=== PATIENT | male | born 1970 | race Caucasian/White ===

== ENCOUNTER → 2016-10-25 | Outpatient (REF) | payer OTHER ==
[~2016-10-25] MED LIST: CLAR10CA3 PO; FOLI1TAB2 PO; MILKSUS PO; MOBI7.5T10 PO; MOTR200T44 PO; MULT1TAB8 PO; MYLASUS6 PO; NEUR300C PO; TRAZ50TA4 PO; VICO10TA11 PO; VITA100T60 PO; WELL100T PO; ZEST1TAB5 PO
[2016-10-25 13:41] LABS: BASO % 0.4 % (0.0-1.0); EOS # 0.2 K/mm3 (0.0-0.50); EOS % 2.5 % (0.0-3.0); LARGE UNSTAINED CELL # 0.1 K/mm3 (0.0-0.4); LARGE UNSTAINED CELL % 1.2 % (0.0-4.0); LYMPH # 2.2 K/mm3 (1.5-4.5); LYMPH % 20.6 % (24.0-44.0); MEAN CORPUSCULAR HEMOGLOBIN 30.8 pg (27.0-33.0); MEAN CORPUSCULAR HGB CONC 34.6 g/dl (32.0-36.5); MONO # 0.9 K/mm3 (0.0-0.8); NEUTROPHILS # 6.7 K/mm3 (1.8-7.7); NEUTROPHILS % 66.3 % (36.0-66.0); PLATELET COUNT, AUTOMATED 187 k/mm3 (150-450); RED CELL DISTRIBUTION WIDTH 12.9 % (11.5-14.5); WHITE BLOOD COUNT 10.1 K/mm3 (4.0-10.0)
[2016-10-25 13:53] LABS: ALBUMIN 3.8 GM/DL (3.2-5.2); ALBUMIN/GLOBULIN RATIO 1.23 (1.00-1.93); ALKALINE PHOSPHATASE 81 U/L (45-117); ALT/SGPT 67 U/L (12-78); ANION GAP 8 MEQ/L (8-16); AST/SGOT 33 U/L (15-37); BILIRUBIN,TOTAL 0.8 MG/DL (0.2-1.0); BLOOD UREA NITROGEN 20 MG/DL (7-18); CALCIUM LEVEL 8.5 MG/DL (8.5-10.1); CARBON DIOXIDE LEVEL 27 MEQ/L (21-32); CHLORIDE LEVEL 105 MEQ/L (98-107); CREATININE FOR GFR 0.85 MG/DL (0.70-1.30); GLOMERULAR FILTRATION RATE > 60.0 (>60); GLUCOSE, FASTING 81 MG/DL (70-105); POTASSIUM SERUM 4.1 MEQ/L (3.5-5.1); SODIUM LEVEL 140 MEQ/L (136-145); TOTAL PROTEIN 6.9 GM/DL (6.4-8.2)
[2016-10-29 08:07] LABS: ALT 62 IU/L (0-55); FIBROSIS STAGE F1-F2 (.); GGT 38 IU/L (0-65); HAPTOGLOBIN 53 mg/dL (34-200); NECROINFLAMM GRADE A1-A2 (.); TOTAL BILIRUBIN 0.6 mg/dL (0.0-1.2)
[2016-10-29 14:15] LABS: HEPATITIS C QUANTITATION 1772860 IU/mL (.)
== END ==
LOC: M SFHCPLAZ 11:12
PROVIDERS: ATTEND Internal Medicine Infectious Disease
DX: B18.2 Chronic viral hepatitis C (principal)

== ENCOUNTER 2017-06-16 08:28 | Day surgery (SDC) | payer OTHER, MEDICAID ==
[2017-06-16] MEDS: LR 1,000 ML IV ×2 (09:15→12:15)
[2017-06-16] MEDS ORDERED: MIDAZOLAM INJ 2 MG/2 ML VIAL (J2250) As Ordered (09:48)
[2017-06-16] MEDS ORDERED: fentaNYL 100 MCG/2 ML INJECTION (J3010) As Ordered ×2 (09:48→12:30)
[2017-06-16] MEDS: fentaNYL 100 MCG/2 ML INJECTION (J3010) IV ×4 (10:35→10:50)
[2017-06-16] MEDS: OXYMETAZOLINE NASAL SPRAY (AFRIN) As Ordered (10:44)
[2017-06-16] MEDS: EPINEPHrine INJ 1 MG/ML 1ML AMP As Ordered (10:44)
[2017-06-16] MEDS ORDERED: METHYLENE BLUE 0.5% (5MG/ML) 10 ML AMP (PROVAYBLUE)(Q9968 PER 1MG) As Ordered (10:47)
[2017-06-16] MEDS ORDERED: ROCURONIUM BROMIDE 50 MG/5 ML VIAL As Ordered (11:00)
[2017-06-16] MEDS ORDERED: LIDOCAINE 2% INJ 100 MG/5 ML SDV (FOR ANES.) As Ordered (11:00)
[2017-06-16] MEDS ORDERED: PROPOFOL 200 MG/20 ML VIAL As Ordered (11:00)
[2017-06-16] MEDS ORDERED: GLYCOPYRROLATE INJ 0.2 MG/ML 2 ML VIAL As Ordered (11:00)
[2017-06-16] MEDS ORDERED: SUCCINYLCHOLINE 100 MG/5 ML SYRINGE (J0330) As Ordered (11:00)
[2017-06-16] MEDS ORDERED: dexameTHASONE 4 MG/ML 1ML VIAL (J1100) As Ordered ×2 (11:00)
[2017-06-16] MEDS ORDERED: ONDANSETRON 4MG/2ML VIAL (J2405) As Ordered (11:00)
[2017-06-16] MEDS ORDERED: LIDOCAINE W/EPINEPHRINE 1% 20ML VIAL As Ordered ×2 (11:05→11:08)
[2017-06-16] MEDS ORDERED: ONDANSETRON 4 MG TAB (S0181) PO (13:15)
[2017-06-16] MEDS ORDERED: ONDANSETRON 4MG/2ML VIAL (J2405) IV (13:15)
[2017-06-16] MEDS: PERCOCET 5MG/325MG TAB PO (13:44)
[2017-06-16] MEDS ORDERED: IBUPROFEN 800 MG TAB As Ordered (14:39)
[2017-06-16] MEDS: IBUPROFEN 800 MG TAB PO (14:45)
[2017-06-17] MEDS ORDERED: UNRESOLVED CLARIFICATION ENTRY XX (00:01)
== END 2017-06-16 15:25 | disposition home or self-care (01) ==
LOC: M SDC 08:28
DX: J32.9 Chronic sinusitis, unspecified (principal); J34.2 Deviated nasal septum; F32.9 Major depressive disorder, single episode, unspecified; M17.0 Bilateral primary osteoarthritis of knee; M19.149 Post-traumatic osteoarthritis, unspecified hand; M47.819 Spondylosis without myelopathy or radiculopathy, site unspecified; Z86.19 Personal history of other infectious and parasitic diseases; R06.02 Shortness of breath; F17.210 Nicotine dependence, cigarettes, uncomplicated; Z79.899 Other long term (current) drug therapy
CPT/HCPCS: 30520

== ENCOUNTER → 2019-11-09 | Outpatient (CLI) | payer OTHER ==
[~2019-11-09] MED LIST changes: +FOLI1TAB11 PO; -FOLI1TAB2 PO; +GABA-1171 PO; +MILK120011 PO; -MILKSUS PO; +MOBI4TAB PO; -MOBI7.5T10 PO; +TRAZ-252 PO; -TRAZ50TA4 PO
--- NOTE | 2019-11-09 18:13 | REP ---
Clinical: Chronic cough . Comparison: None . Technique: PA and lateral. Findings: The mediastinum and cardiac silhouette are normal. The lung [place] are clear and without acute consolidation, effusion, or pneumothorax. The skeletal structures are intact and normal. Impression: 1. No acute cardiopulmonary process. If the patient remains symptomatic consider chest CT for further investigation. Electronically Signed by Lemuel Garza MD 11/09/2019 06:05 P
== END ==
LOC: M CLY 10:11
PROVIDERS: ATTEND Physician Assistant
DX: R05 Cough (principal)

== ENCOUNTER → 2019-12-02 | Outpatient (CLI) | payer OTHER ==
--- NOTE | 2019-12-02 08:54 | PFTRPT ---
Visit Date: 12/02/2019 Referring Doctor: MALENA Diaz Marcus, M Height: 74.00 Inches Weight: 215.00 Lbs BSA: 2.24 Diagnosis: R06.00 Spirometry: Pre and post bronchodilator study of excellent technical quality. Forced vital capacity normal. FEV1 out of proportion. Obstructive index is, therefore, reduced. Flow Volume Loop: Expiratory limb of the flow volume loop suggests some degree of flow rate limitation. Only borderline bronchodilator response is identified. Lung Volumes: Total lung capacity elevated. Residual volume suggests air trapping. Diffusing Capacity: Normal. Hemoglobin: Acceptable at 16. Airway Mechanics: Airways resistance and conductance are normal. IMPRESSION: At least mild obstructive ventilatory impairment with borderline bronchodilator response. Please correlate clinically. MTDD
== END ==
LOC: M CARPUL 07:47
PROVIDERS: ATTEND Physician Assistant
DX: R06.00 Dyspnea, unspecified (principal)

== ENCOUNTER → 2019-12-08 | Outpatient (CLI) | payer OTHER ==
[2019-12-08 14:13] LABS: APPEARANCE, URINE CLEAR (CLEAR); BACTERIA, URINE AUTO NEGATIVE (NEGATIVE); BILIRUBIN, URINE AUTO NEGATIVE (NEGATIVE); BLOOD, URINE BLOOD NEGATIVE (NEGATIVE); COLOR, URINE COLORLESS (YELLOW); GLUCOSE, URINE (UA) AUTO NEGATIVE (NEGATIVE); KETONE, URINE AUTO NEGATIVE (NEGATIVE); LEUKOCYTE ESTERASE, URINE AUTO NEGATIVE (NEGATIVE); NITRITE, URINE AUTO NEGATIVE (NEGATIVE); PROTEIN, URINE AUTO NEGATIVE (NEGATIVE); RBC, URINE AUTO 1 /HPF (0-3); SPECIFIC GRAVITY URINE AUTO 1.001 (1.002-1.035); SQUAMOUS EPITHELIAL CELL UR AU 0 /HPF (0-6); UROBILINOGEN, URINE AUTO 0.2 mg/dL (0.0-2.0); WBC, URINE AUTO 0 /HPF (0-3)
[2019-12-08 14:21] LABS: BASO % 0.3 % (0.0-1.0); EOS # 0.1 10^3/uL (0.0-0.5); EOS % 1.4 % (0.0-3.0); HEMATOCRIT 47.3 % (42.0-52.0); HEMOGLOBIN 16.4 g/dl (13.5-17.5); LYMPH % 22.7 % (24.0-44.0); MEAN CORPUSCULAR HEMOGLOBIN 29.7 pg (27.0-33.0); MEAN CORPUSCULAR HGB CONC 34.7 g/dl (32.0-36.5); MEAN CORPUSCULAR VOLUME 85.5 fl (80.0-96.0); MONO # 0.6 10^3/uL (0.0-0.8); MONO % 7.3 % (0.0-5.0); NEUTROPHILS # 5.9 10^3/uL (1.5-8.5); PLATELET COUNT, AUTOMATED 204 10^3/uL (150-450); RED BLOOD COUNT 5.53 10^6/uL (4.30-6.10); WHITE BLOOD COUNT 8.7 10^3/uL (4.0-10.0)
[2019-12-08 15:07] LABS: ALBUMIN 4.1 GM/DL (3.2-5.2); ALT/SGPT 46 U/L (12-78); BILIRUBIN,DIRECT 0.2 MG/DL (0.0-0.2); BILIRUBIN,TOTAL 0.6 MG/DL (0.2-1.0); BLOOD UREA NITROGEN 10 MG/DL (7-18); CALCIUM LEVEL 8.9 MG/DL (8.5-10.1); CARBON DIOXIDE LEVEL 23 MEQ/L (21-32); CHLORIDE LEVEL 109 MEQ/L (98-107); CHOLESTEROL LEVEL 148 MG/DL (<200); CREATININE FOR GFR 0.79 MG/DL (0.70-1.30); GLOMERULAR FILTRATION RATE > 60.0 (>60); GLUCOSE, FASTING 80 MG/DL (70-100); HDL CHOLESTEROL 37 MG/DL (>40); LDL CHOLESTEROL 97 MG/DL (<100); NON-HDL-C 111 MG/DL; POTASSIUM SERUM 3.9 MEQ/L (3.5-5.1); SODIUM LEVEL 138 MEQ/L (136-145); TOTAL PROTEIN 7.8 GM/DL (6.4-8.2); TRIGLYCERIDES LEVEL 68 MG/DL (<150)
[2019-12-14 11:12] LABS: HEPATITIS C QUANTITATION HCV Not Detected IU/mL (.)
== END ==
LOC: M LAB 13:21
PROVIDERS: ATTEND Physician Assistant
DX: B18.2 Chronic viral hepatitis C (principal); I10 Essential (primary) hypertension

== ENCOUNTER → 2020-02-10 | Outpatient (CLI) | payer OTHER ==
[~2020-02-10] MED LIST changes: +METHACHOLINE KIT (J7674) INH ONE
--- NOTE | 2020-02-17 11:38 | PFTRPT ---
Height: 74.00 Inches Weight: 215.00 Lbs BSA: 2.24 DATE: 02/10/2020 ORDERED BY: Lemuel Diaz M.D. QUALITY: Study of excellent technical quality. PROCEDURE: Under protocol, methacholine was administered. At a dose of 0.025 mg or 0.125 CDUs, a 23% decline of the FEV1 was noted. Flow rates did return to baseline post-bronchodilator administration. IMPRESSION: Positive methacholine challenge study. MTDD
--- NOTE | 2020-02-17 11:38 | PFTRPT ---
Height: 74.00 Inches Weight: 215.00 Lbs BSA: 2.24 DATE OF STUDY: 02/10/2020 ORDERED BY: Hemanth Diaz QUALITY: Study of excellent technical quality. PROCEDURE: Under protocol, methacholine was administered. At a dose of 0.025 mg or 0.125 CDUs, a 23% decline in the FEV1 was noted. No PC calculated. Flow rates did return to baseline post-bronchodilator administration. IMPRESSION: Positive methacholine challenge study. MTDD
== END ==
LOC: M CARPUL 14:04
PROVIDERS: ATTEND Physician Assistant
DX: R06.00 Dyspnea, unspecified (principal)
CPT/HCPCS: 94070; 95070; J7674

== ENCOUNTER 2020-07-04 12:47 | Emergency (ER) | payer OTHER ==
[~2020-07-04] VITALS: Ht 188 cm; Wt 106.8 kg
[~2020-07-04 12:47] MED LIST changes: -METHACHOLINE KIT (J7674) INH ONE
[2020-07-04] MEDS ORDERED: CIAL5TAB PO (13:16)
[2020-07-04] MEDS ORDERED: LISI40TA4 (13:16)
[2020-07-04] MEDS ORDERED: BRIL1TAB (13:16)
[2020-07-04] MEDS ORDERED: ATOR80TA59 (13:16)
[2020-07-04 13:32] LABS: BASO % 0.4 % (0.0-1.0); EOS # 0.2 10^3/uL (0.0-0.5); EOS % 2.8 % (0.0-3.0); HEMATOCRIT 44.7 % (42.0-52.0); HEMOGLOBIN 15.3 g/dl (13.5-17.5); LYMPH # 2.3 10^3/uL (1.5-5.0); MEAN CORPUSCULAR HGB CONC 34.2 g/dl (32.0-36.5); MEAN CORPUSCULAR VOLUME 84.7 fl (80.0-96.0); MONO # 0.9 10^3/uL (0.0-0.8); MONO % 11.3 % (0.0-5.0); NEUTROPHILS # 4.3 10^3/uL (1.5-8.5); NEUTROPHILS % 55.2 % (36.0-66.0); PLATELET COUNT, AUTOMATED 181 10^3/uL (150-450); RED BLOOD COUNT 5.28 10^6/uL (4.30-6.10); WHITE BLOOD COUNT 7.8 10^3/uL (4.0-10.0)
--- NOTE | 2020-07-04 13:53 | REP ---
INDICATION: CHEST PAIN. COMPARISON: Comparison portable chest x-ray November 09, 2019. TECHNIQUE: Portable upright AP chest radiograph. Two views. FINDINGS: The lungs are well inflated and free of infiltrate. Pleural angles are sharp. Heart size is normal. Pulmonary vasculature is not increased. Monitoring electrodes are visible. IMPRESSION: No active disease. <Electronically signed by Darius Nance > 07/04/20 [id number]
[2020-07-04 14:05] LABS: BLOOD UREA NITROGEN 14 MG/DL (7-18); CARBON DIOXIDE LEVEL 24 MEQ/L (21-32); CHLORIDE LEVEL 105 MEQ/L (98-107); CK-MB VALUE MASS 1.8 NG/ML (<3.6); CPK CREATINE PHOSPHOKINASE 164 U/L (39-308); CREATININE FOR GFR 0.96 MG/DL (0.70-1.30); GLOMERULAR FILTRATION RATE > 60.0 (>60); GLUCOSE, FASTING 101 MG/DL (70-100); NT-PRO BNP 69 PG/ML (<125); POTASSIUM SERUM 3.9 MEQ/L (3.5-5.1); SODIUM LEVEL 138 MEQ/L (136-145); TROPONIN I < 0.02 NG/ML (< 0.10)
[2020-07-04 20:00] VITALS: BP 123/83
--- NOTE | 2020-07-05 14:40 | ECGEPIP ---
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
--- NOTE | 2020-07-05 14:44 | ECGEPIP ---
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
== END 2020-07-04 20:10 | disposition home or self-care (01) ==
LOC: M ED 12:47
DX: R07.9 Chest pain, unspecified (principal); I11.9 Hypertensive heart disease without heart failure; K21.9 Gastro-esophageal reflux disease without esophagitis; E78.5 Hyperlipidemia, unspecified; Z87.891 Personal history of nicotine dependence; Z95.818 Presence of other cardiac implants and grafts

== ENCOUNTER 2020-09-18 13:17 | Emergency (ER) | payer OTHER ==
[~2020-09-18] VITALS: Ht 188 cm; Wt 105.2 kg
[~2020-09-18 13:17] MED LIST changes: +ATOR80TA59; +BRIL1TAB; +CIAL5TAB PO; +LISI40TA4
[2020-09-18 13:18] VITALS: BP 143/89
== END 2020-09-18 16:05 | disposition left against medical advice (07) ==
LOC: M ED 13:17
DX: Z53.21 Procedure and treatment not carried out due to patient leaving prior to being seen by health care provider (principal)

== ENCOUNTER → 2020-10-18 | Outpatient (CLI) | payer OTHER ==
[~2020-10-18] MED LIST changes: +GASTROGRAFIN SOLUTION 30ML (Q9963) As Ordered ONE; +ISOVUE-370 76% 100ML VIAL As Ordered ONE
--- NOTE | 2020-10-20 02:25 | REP ---
INDICATION: RLQ PAIN. COMPARISON: None available TECHNIQUE: Axial contrast-enhanced images from the lung bases to the pubic symphysis using oral and 100 cc Isovue 370 intravenous contrast material. Coronal and sagittal reformations obtained. This CT examination was performed using the following dose reduction techniques: Automated exposure control, adjustment of mA and/or kv according to the patient's size, and the use of iterative reconstruction technique. FINDINGS: Lung bases are clear. Visualized heart and pericardium normal. A very small hiatal hernia at the gastroesophageal junction is suspected. Liver, spleen, pancreas, bilateral adrenal glands and kidneys are normal. Cholelithiasis noted without acute cholecystitis. The enteric system including stomach, small, and large bowel appears relatively normal. No evidence for obstruction or acute inflammatory process. Normal terminal ileum and appendix are identified in the right lower quadrant. Few scattered colonic diverticula noted without acute diverticulitis. Pelvis demonstrates normal bladder and age-appropriate prostate/seminal vesicles. Small fat containing left inguinal hernia noted. No ascites. No free air. No intraperitoneal or retroperitoneal adenopathy. Abdominal aorta and vasculature appear normal. Musculoskeletal structures are intact and without acute osseous abnormality. IMPRESSION: No acute abdominopelvic pathology appreciated. Cholelithiasis. Small hiatal hernia. Scattered colonic diverticula. Small fat containing left inguinal hernia. <Electronically signed by Lemuel Garza > 10/20/20 [id number]
== END ==
LOC: M RAD 13:46
PROVIDERS: ATTEND Physician Assistant
DX: R10.9 Unspecified abdominal pain (principal)
CPT/HCPCS: 74177; Q9963; Q9967

== ENCOUNTER → 2020-11-24 | Outpatient (CLI) | payer OTHER ==
[~2020-11-24] MED LIST changes: -GASTROGRAFIN SOLUTION 30ML (Q9963) As Ordered ONE; -ISOVUE-370 76% 100ML VIAL As Ordered ONE
== END ==
LOC: M LABSMTC 12:27
PROVIDERS: ATTEND Anesthesiology
DX: Z01.812 Encounter for preprocedural laboratory examination (principal); Z20.822 Contact with and (suspected) exposure to COVID-19

== ENCOUNTER 2020-11-29 09:01 | Day surgery (SDC) | payer OTHER ==
[~2020-11-29] VITALS: Ht 188 cm; Wt 99.8 kg
[2020-11-29] MEDS ORDERED: BIOT1CAP2 PO (09:29)
[2020-11-29] MEDS ORDERED: LOSA100T50 PO (09:29)
[2020-11-29] MEDS ORDERED: ASPI81CH33 PO (09:29)
[2020-11-29] MEDS ORDERED: NS 1,000 ML IV ONE (09:40)
[2020-11-29] MEDS ORDERED: LIDOCAINE 2% 100MG/5ML SDV (FOR ANES.) As Ordered ONE (10:21)
[2020-11-29] MEDS ORDERED: propofoL 200 MG/20 ML VIAL As Ordered ONE ×2 (10:21→10:34)
[2020-11-29] MEDS ORDERED: fentaNYL 100 MCG/2 ML INJECTION (J3010) As Ordered ONE (10:22)
--- NOTE | 2020-11-29 10:50 | ROOR ---
Patient Name: Eh Estrada Procedure Date: 11/29/2020 10:31 AM Date of : 1970 Age: 50 Room: [facility] Gender: Male Note Status: Finalized Procedure: Upper Endoscopy + Biopsies Indications: Abdominal pain in the right upper quadrant, Heartburn, Exclusion of Mann's esophagus Providers: Endy Castaneda MD Referring MD: STEPH Vanegas pa-c Requesting Provider: Medicines: Monitored Anesthesia Care Complications: No immediate complications. Procedure: Pre-Anesthesia Assessment: - The heart rate, respiratory rate, oxygen saturations, blood pressure, adequacy of pulmonary ventilation, and response to care were monitored throughout the procedure. The Endoscope was introduced through the mouth, and advanced to the second part of duodenum. The upper GI endoscopy was accomplished without difficulty. The patient tolerated the procedure well. Findings: The Z-line was irregular and was found 40 cm from the incisors. Non-severe esophagitis with no bleeding was found 40 cm from the incisors. Biopsies were taken with a cold forceps for histology. Localized mild inflammation characterized by adherent blood, congestion (edema), erosions and friability was found in the gastric antrum. Biopsies were taken with a cold forceps for Helicobacter pylori testing. The exam of the duodenum was otherwise normal. Impression: - Z-line irregular, 40 cm from the incisors. - Non-severe reflux esophagitis. Rule out Mann's esophagus. Biopsied. - Mucosal changes suspicious for gastritis. Biopsied. - The examination was otherwise normal. Recommendation: - Patient has a contact number available for emergencies. The signs and symptoms of potential delayed complications were discussed with the patient. Return to normal activities tomorrow. Written discharge instructions were provided to the patient. - High fiber diet. - Discharge patient to home. - Continue present medications. - Use Prilosec (omeprazole) 40 mg PO daily. - Follow an antireflux regimen. - Await pathology results. - Telephone GI clinic for pathology results in 1 week. - Repeat upper endoscopy for surveillance based on pathology results. - Telephone GI clinic for pathology results in 1 week. - The findings and recommendations were discussed with the patient's family. Procedure Code(s): --- Professional --- 53076, Esophagogastroduodenoscopy, flexible, transoral; with biopsy, single or multiple Diagnosis Code(s): --- Professional --- K22.8, Other specified diseases of esophagus K21.0, Gastro-esophageal reflux disease with esophagitis K31.89, Other diseases of stomach and duodenum R10.11, Right upper quadrant pain R12, Heartburn CPT copyright 2019 [employer]. All rights reserved. The codes documented in this report are preliminary and upon professional application designer review may be revised to meet current compliance requirements. Endy Castaneda MD Endy Castaneda MD 11/29/2020 10:49:35 AM Electronically signed by Endy Castaneda MD Number of Addenda: 0 Note Initiated On: 11/29/2020 10:31 AM Estimated Blood Loss: Estimated blood loss: none.
--- NOTE | 2020-11-29 11:06 | ROOR ---
Patient Name: Eh Estrada Procedure Date: 11/29/2020 10:32 AM Date of : 1970 Age: 50 Room: [facility] Gender: Male Note Status: Finalized Procedure: Total Colonoscopy to Cecum + Cold Snare Polypectomy Indications: Screening for colorectal malignant neoplasm Providers: Endy Castaneda MD Referring MD: STEPH Vanegas pa-c Requesting Provider: Medicines: Monitored Anesthesia Care Complications: No immediate complications. Procedure: Pre-Anesthesia Assessment: - The heart rate, respiratory rate, oxygen saturations, blood pressure, adequacy of pulmonary ventilation, and response to care were monitored throughout the procedure. The Colonoscope was introduced through the anus and advanced to the cecum, identified by appendiceal orifice and ileocecal valve. The colonoscopy was performed without difficulty. The quality of the bowel preparation was good. Findings: The perianal and digital rectal examinations were normal. Internal hemorrhoids were found during retroflexion. The hemorrhoids were small and Grade I (internal hemorrhoids that do not prolapse). A small polyp was found at 20 cm proximal to the anus. The polyp was sessile. The polyp was removed with a cold snare. Resection and retrieval were complete. A small polyp was found in the hepatic flexure. The polyp was sessile. The polyp was removed with a cold snare. Resection and retrieval were complete. The exam was otherwise without abnormality on direct and retroflexion views. Impression: - Internal hemorrhoids. - One small polyp at 20 cm proximal to the anus, removed with a cold snare. Resected and retrieved. - One small polyp at the hepatic flexure, removed with a cold snare. Resected and retrieved. - The examination was otherwise normal on direct and retroflexion views. - The exam was otherwise normal to the cecum. Recommendation: - Patient has a contact number available for emergencies. The signs and symptoms of potential delayed complications were discussed with the patient. Return to normal activities tomorrow. Written discharge instructions were provided to the patient. - High fiber diet. - Discharge patient to home. - Continue present medications. - Await pathology results. - Telephone GI clinic for pathology results in 1 week. - Repeat colonoscopy in 5 years for surveillance based on pathology results. - Return to referring physician. - The findings and recommendations were discussed with the patient's family. Procedure Code(s): --- Professional --- 24866, Colonoscopy, flexible; with removal of tumor(s), polyp(s), or other lesion(s) by snare technique Diagnosis Code(s): --- Professional --- Z12.11, Encounter for screening for malignant neoplasm of colon K64.0, First degree hemorrhoids K63.5, Polyp of colon CPT copyright 2019 [employer]. All rights reserved. The codes documented in this report are preliminary and upon photoengraving finisher review may be revised to meet current compliance requirements. Endy Castaneda MD Endy Castaneda MD 11/29/2020 11:06:02 AM Electronically signed by Endy Castaneda MD Number of Addenda: 0 Note Initiated On: 11/29/2020 10:32 AM Estimated Blood Loss: Estimated blood loss: none.
[2020-11-29 11:30] VITALS: BP 139/81
== END 2020-11-29 11:33 | disposition home or self-care (01) ==
LOC: M OPP 09:01
PROVIDERS: ATTEND Internal Medicine Gastroenterology
DX: Z12.11 Encounter for screening for malignant neoplasm of colon (principal); D12.6 Benign neoplasm of colon, unspecified; K64.0 First degree hemorrhoids; K22.8 Other specified diseases of esophagus; K21.00 Gastro-esophageal reflux disease with esophagitis, without bleeding; K31.89 Other diseases of stomach and duodenum; R10.11 Right upper quadrant pain; R12 Heartburn; Z79.82 Long term (current) use of aspirin; Z79.899 Other long term (current) drug therapy; Z87.891 Personal history of nicotine dependence
CPT/HCPCS: 43239; 45385; 88305; J3010

== ENCOUNTER → 2021-03-02 | Outpatient (CLI) | payer OTHER ==
[~2021-03-02] MED LIST changes: +ASPI81CH33 PO; +BIOT1CAP2 PO; +LOSA100T50 PO
[2021-03-02 14:26] LABS: APPEARANCE, URINE CLEAR (CLEAR); BACTERIA, URINE AUTO NEGATIVE (NEGATIVE); BILIRUBIN, URINE AUTO NEGATIVE (NEGATIVE); BLOOD, URINE BLOOD NEGATIVE (NEGATIVE); COLOR, URINE STRAW (YELLOW); GLUCOSE, URINE (UA) AUTO NEGATIVE (NEGATIVE); KETONE, URINE AUTO NEGATIVE (NEGATIVE); LEUKOCYTE ESTERASE, URINE AUTO NEGATIVE (NEGATIVE); MUCUS, URINE SMALL (NEGATIVE); NITRITE, URINE AUTO NEGATIVE (NEGATIVE); PROTEIN, URINE AUTO NEGATIVE (NEGATIVE); RBC, URINE AUTO 0 /HPF (0-3); SPECIFIC GRAVITY URINE AUTO 1.009 (1.002-1.035); SQUAMOUS EPITHELIAL CELL UR AU 0 /HPF (0-6); UROBILINOGEN, URINE AUTO 0.2 mg/dL (0.0-2.0); WBC, URINE AUTO 0 /HPF (0-3)
[2021-03-02 14:28] LABS: BASO % 0.4 % (0.0-1.0); EOS # 0.2 10^3/uL (0.0-0.5); EOS % 2.1 % (0.0-3.0); HEMATOCRIT 44.3 % (42.0-52.0); HEMOGLOBIN 15.2 g/dl (13.5-17.5); LYMPH # 1.9 10^3/uL (1.5-5.0); LYMPH % 22.2 % (24.0-44.0); MEAN CORPUSCULAR HEMOGLOBIN 29.6 pg (27.0-33.0); MEAN CORPUSCULAR HGB CONC 34.3 g/dl (32.0-36.5); MEAN CORPUSCULAR VOLUME 86.4 fl (80.0-96.0); MONO # 0.9 10^3/uL (0.0-0.8); MONO % 10.8 % (2.0-8.0); NEUTROPHILS # 5.4 10^3/uL (1.5-8.5); PLATELET COUNT, AUTOMATED 155 10^3/uL (150-450); RED BLOOD COUNT 5.13 10^6/uL (4.30-6.10); WHITE BLOOD COUNT 8.5 10^3/uL (4.0-10.0)
[2021-03-02 15:08] LABS: ALBUMIN 3.8 GM/DL (3.2-5.2); ALT/SGPT 49 U/L (12-78); BILIRUBIN,TOTAL 0.8 MG/DL (0.2-1.0); BLOOD UREA NITROGEN 15 MG/DL (7-18); CALCIUM LEVEL 9.1 MG/DL (8.5-10.1); CARBON DIOXIDE LEVEL 27 MEQ/L (21-32); CHLORIDE LEVEL 105 MEQ/L (98-107); CHOLESTEROL LEVEL 136 MG/DL (<200); CREATININE FOR GFR 0.89 MG/DL (0.70-1.30); GLOMERULAR FILTRATION RATE > 60.0 (>60); GLUCOSE, FASTING 85 MG/DL (70-100); HDL CHOLESTEROL 50 MG/DL (>40); LDL CHOLESTEROL 72 MG/DL (<100); NON-HDL-C 86 MG/DL; POTASSIUM SERUM 4.2 MEQ/L (3.5-5.1); SODIUM LEVEL 141 MEQ/L (136-145); TOTAL PROTEIN 7.6 GM/DL (6.4-8.2); TRIGLYCERIDES LEVEL 72 MG/DL (<150)
[2021-03-02 15:41] LABS: HEMOGLOBIN A1c 5.6 %
== END ==
LOC: M LAB 13:10
PROVIDERS: ATTEND Physician Assistant
DX: R35.0 Frequency of micturition (principal); I10 Essential (primary) hypertension; Z12.5 Encounter for screening for malignant neoplasm of prostate

== ENCOUNTER 2021-07-14 15:08 | Emergency (ER) | payer OTHER ==
[~2021-07-14] VITALS: Ht 188 cm; Wt 111.4 kg
[~2021-07-14 15:08] MED LIST changes: +LOSA100T45 PO; -LOSA100T50 PO
[2021-07-14 15:09] VITALS: BP 153/95
[2021-07-14] MEDS ORDERED: ARNU1INH3 (15:34)
[2021-07-14] MEDS ORDERED: ALBU8.5H (15:34)
[2021-07-14] MEDS ORDERED: METOCLOPRAMIDE 10 MG TAB PO ONE (18:05)
[2021-07-14] MEDS ORDERED: MECLIZINE 25 MG TABLET PO ONE (18:05)
[2021-07-14] MEDS ORDERED: ACETAMINOPHEN 500 MG TAB PO ONE (18:05)
[2021-07-14] MEDS ORDERED: REGL10TA6 PO (18:15)
== END 2021-07-14 18:23 | disposition home or self-care (01) ==
LOC: M ED 15:08
DX: S06.0X0A Concussion without loss of consciousness, initial encounter (principal); V49.40XA Driver injured in collision with unspecified motor vehicles in traffic accident, initial encounter; Y92.9 Unspecified place or not applicable; Y93.9 Activity, unspecified; Y99.9 Unspecified external cause status; B18.2 Chronic viral hepatitis C; Z95.2 Presence of prosthetic heart valve

== ENCOUNTER → 2021-07-18 | Outpatient (CLI) | payer OTHER ==
[~2021-07-18] MED LIST changes: +ALBU8.5H; +ARNU1INH3; +REGL10TA6 PO
== END ==
LOC: M RAD 14:07
PROVIDERS: ATTEND Physician Assistant
DX: Z12.2 Encounter for screening for malignant neoplasm of respiratory organs (principal); Z87.891 Personal history of nicotine dependence

== ENCOUNTER → 2021-10-12 | Outpatient (CLI) | payer OTHER | LOC: M RAD 16:40 | PROVIDERS: ATTEND Physician Assistant | DX: R91.8 Other nonspecific abnormal finding of lung field (principal) ==

== ENCOUNTER → 2022-04-18 | Outpatient (CLI) | payer OTHER | LOC: M RAD 15:43 | PROVIDERS: ATTEND Physician Assistant | DX: R91.8 Other nonspecific abnormal finding of lung field (principal) ==

== ENCOUNTER 2022-09-01 21:33 | Emergency (ER) | payer MEDICAID ==
[~2022-09-01] VITALS: Ht 188 cm; Wt 107.1 kg
[2022-09-01] MEDS ORDERED: LORA-622 PO (21:54)
[2022-09-01] MEDS ORDERED: ASPIRIN 81MG CHEW TABLET PO ONE (22:05)
[2022-09-01] MEDS: METOPROLOL 5 MG/5 ML VIAL IV SCH ×3 (22:20→23:03)
[2022-09-01] MEDS ORDERED: NS 1,000 ML IV ONE (22:20)
[2022-09-01 22:35] LABS: BASO # 0.1 10^3/uL (0.0-0.2); BASO % 0.8 % (0.0-1.0); EOS # 0.7 10^3/uL (0.0-0.5); EOS % 6.8 % (0.0-3.0); HEMATOCRIT 47.9 % (42.0-52.0); HEMOGLOBIN 16.3 g/dl (13.5-17.5); LYMPH # 2.6 10^3/uL (1.5-5.0); LYMPH % 27.1 % (24.0-44.0); MEAN CORPUSCULAR HEMOGLOBIN 29.4 pg (27.0-33.0); MEAN CORPUSCULAR VOLUME 86.5 fl (80.0-96.0); MONO # 1.2 10^3/uL (0.0-0.8); MONO % 12.4 % (2.0-8.0); NEUTROPHILS # 5.1 10^3/uL (1.5-8.5); NEUTROPHILS % 52.6 % (36.0-66.0); PLATELET COUNT, AUTOMATED 201 10^3/uL (150-450); RED BLOOD COUNT 5.54 10^6/uL (4.30-6.10); WHITE BLOOD COUNT 9.7 10^3/uL (4.0-10.0)
[2022-09-01 22:51] LABS: CARBON DIOXIDE LEVEL 26 MMOL/L (20-31); CHLORIDE LEVEL 107 MMOL/L (98-107); SODIUM LEVEL 139 MMOL/L (136-145)
[2022-09-01 22:55] LABS: BLOOD UREA NITROGEN 18 MG/DL (9-23); CALCIUM LEVEL 8.8 MG/DL (8.5-10.1); CPK CREATINE PHOSPHOKINASE 114 U/L (46-171); CREATININE FOR GFR 0.83 MG/DL (0.70-1.30); GLOMERULAR FILTRATION RATE > 60.0 (>56); GLUCOSE, FASTING 84 MG/DL (60-100); MAGNESIUM LEVEL 1.7 MG/DL (1.8-2.4); MB/CK RELATIVE INDEX 1.75 (< OR =4)
[2022-09-01 22:56] LABS: INR 1.01; PROTHROMBIN TIME 13.5 SECONDS (12.5-14.5); THYROID STIMULATING HORMONE 5.341 uIU/ML (0.55-4.78)
[2022-09-01 22:57] LABS: FREE T4 0.85 NG/DL (0.89-1.76); PARTIAL THROMBOPLASTIN TIME 30.8 SECONDS (24.8-34.2)
[2022-09-01] MEDS ORDERED: METOPROLOL TART 25 MG TABLET PO ONE (23:00)
[2022-09-01] MEDS ORDERED: METO1TAB87 PO (23:49)
[2022-09-01] MEDS ORDERED: ASPI-1 PO (23:49)
[2022-09-02 00:18] LABS: CK-MB VALUE MASS 1.8 NG/ML (<3.6)
[2022-09-02 00:29] LABS: MB/CK RELATIVE INDEX 2.02 (< OR =4)
[2022-09-02 00:49] VITALS: BP 143/97
== END 2022-09-02 00:56 | disposition home or self-care (01) ==
LOC: M ED 21:33
DX: I48.91 Unspecified atrial fibrillation (principal); I10 Essential (primary) hypertension; E78.5 Hyperlipidemia, unspecified; J45.909 Unspecified asthma, uncomplicated; I25.2 Old myocardial infarction; B19.20 Unspecified viral hepatitis C without hepatic coma; Z87.891 Personal history of nicotine dependence; Z79.899 Other long term (current) drug therapy; Z79.51 Long term (current) use of inhaled steroids

== ENCOUNTER → 2022-09-05 | Outpatient (CLI) | payer MEDICAID ==
[~2022-09-05] MED LIST changes: +ASPI-1 PO; +LORA-622 PO; +METO1TAB87 PO
== END ==
LOC: M PLAIMG 10:27
PROVIDERS: ATTEND Physician Assistant
DX: R91.8 Other nonspecific abnormal finding of lung field (principal)

== ENCOUNTER → 2022-10-02 | Outpatient (REF) | payer MEDICAID ==
[~2022-10-02] MED LIST changes: -LOSA100T45 PO; +LOSA100T46 PO
[2022-10-03 18:49] LABS: BASO % 0.4 % (0.0-1.0); EOS # 0.4 10^3/uL (0.0-0.5); EOS % 6.1 % (0.0-3.0); HEMATOCRIT 48.6 % (42.0-52.0); HEMOGLOBIN 16.3 g/dl (13.5-17.5); LYMPH # 1.5 10^3/uL (1.5-5.0); LYMPH % 21.2 % (24.0-44.0); MEAN CORPUSCULAR HEMOGLOBIN 29.4 pg (27.0-33.0); MEAN CORPUSCULAR HGB CONC 33.5 g/dl (32.0-36.5); MEAN CORPUSCULAR VOLUME 87.6 fl (80.0-96.0); MONO # 0.8 10^3/uL (0.0-0.8); MONO % 10.8 % (2.0-8.0); NEUTROPHILS # 4.2 10^3/uL (1.5-8.5); NEUTROPHILS % 61.4 % (36.0-66.0); PLATELET COUNT, AUTOMATED 205 10^3/uL (150-450); RED BLOOD COUNT 5.55 10^6/uL (4.30-6.10); WHITE BLOOD COUNT 6.9 10^3/uL (4.0-10.0)
[2022-10-03 18:57] LABS: ALBUMIN 4.2 G/DL (3.2-5.2); ALKALINE PHOSPHATASE 116 U/L (46-116); ALT/SGPT 51 U/L (7.0-40); AST/SGOT 12 U/L (<34); BILIRUBIN,TOTAL 0.9 MG/DL (0.3-1.2); BLOOD UREA NITROGEN 16 MG/DL (9-23); CALCIUM LEVEL 9.2 MG/DL (8.5-10.1); CARBON DIOXIDE LEVEL 24 MMOL/L (20-31); CHLORIDE LEVEL 107 MMOL/L (98-107); CHOLESTEROL LEVEL 128 MG/DL (<200); CHOLESTEROL RISK RATIO 3.66 (<5); CREATININE FOR GFR 0.79 MG/DL (0.70-1.30); GLOMERULAR FILTRATION RATE > 60.0 (>56); GLUCOSE, FASTING 81 MG/DL (60-100); HDL CHOLESTEROL 34.9 MG/DL (>40); LDL CHOLESTEROL 77.3 MG/DL (<100); NON-HDL-C 93.1 MG/DL; POTASSIUM SERUM 4.4 MMOL/L (3.5-5.1); SODIUM LEVEL 137 MMOL/L (136-145); TRIGLYCERIDES LEVEL 79 MG/DL (<150)
[2022-10-03 18:58] LABS: THYROID STIMULATING HORMONE 1.827 uIU/ML (0.55-4.78)
== END ==
LOC: M SFHCCAPE 14:56
PROVIDERS: ATTEND Physician Assistant
DX: I10 Essential (primary) hypertension (principal); E78.2 Mixed hyperlipidemia; Z12.5 Encounter for screening for malignant neoplasm of prostate; R79.89 Other specified abnormal findings of blood chemistry

== ENCOUNTER → 2022-12-18 | Outpatient (CLI) | payer OTHER | LOC: M RAD 13:39 | PROVIDERS: ATTEND Physician Assistant | DX: R91.8 Other nonspecific abnormal finding of lung field (principal) ==

== ENCOUNTER → 2023-06-30 | Outpatient (CLI) | payer OTHER ==
[2023-06-30 14:58] LABS: BASO % 0.6 % (0.0-1.0); EOS # 0.3 10^3/uL (0.0-0.5); EOS % 6.3 % (0.0-3.0); HEMATOCRIT 47.6 % (42.0-52.0); HEMOGLOBIN 16.1 g/dl (13.5-17.5); LYMPH # 1.3 10^3/uL (1.5-5.0); LYMPH % 24.8 % (24.0-44.0); MEAN CORPUSCULAR HEMOGLOBIN 29.2 pg (27.0-33.0); MEAN CORPUSCULAR HGB CONC 33.8 g/dl (32.0-36.5); MEAN CORPUSCULAR VOLUME 86.2 fl (80.0-96.0); MONO # 0.7 10^3/uL (0.0-0.8); MONO % 13.8 % (2.0-8.0); NEUTROPHILS # 2.8 10^3/uL (1.5-8.5); NEUTROPHILS % 54.3 % (36.0-66.0); PLATELET COUNT, AUTOMATED 188 10^3/uL (150-450); RED BLOOD COUNT 5.52 10^6/uL (4.30-6.10); WHITE BLOOD COUNT 5.2 10^3/uL (4.0-10.0)
[2023-06-30 15:11] LABS: ALBUMIN 4.1 G/DL (3.2-5.2); ALKALINE PHOSPHATASE 108 U/L (46-116); ALT/SGPT 62 U/L (7.0-40); AST/SGOT 41 U/L (<34); BILIRUBIN,TOTAL 0.8 MG/DL (0.3-1.2); BLOOD UREA NITROGEN 14 MG/DL (9-23); CALCIUM LEVEL 9.4 MG/DL (8.5-10.1); CARBON DIOXIDE LEVEL 31 MMOL/L (20-31); CHLORIDE LEVEL 104 MMOL/L (98-107); CHOLESTEROL LEVEL 123 MG/DL (<200); CHOLESTEROL RISK RATIO 3.73 (<5); CREATININE FOR GFR 0.96 MG/DL (0.70-1.30); GLOMERULAR FILTRATION RATE > 60.0 (>56); GLUCOSE, FASTING 81 MG/DL (60-100); HDL CHOLESTEROL 32.9 MG/DL (>40); LDL CHOLESTEROL 75.3 MG/DL (<100); NON-HDL-C 90.1 MG/DL; POTASSIUM SERUM 4.3 MMOL/L (3.5-5.1); SODIUM LEVEL 139 MMOL/L (136-145); TOTAL PROTEIN 7.8 G/DL (5.7-8.2); TRIGLYCERIDES LEVEL 74 MG/DL (<150)
[2023-06-30 15:25] LABS: HEMOGLOBIN A1c 5.5 % (4.0-6.0)
== END ==
LOC: M RAD 13:44
PROVIDERS: ATTEND Physician Assistant Medical
DX: M25.561 Pain in right knee (principal)

== ENCOUNTER → 2023-12-04 | Outpatient (CLI) | payer OTHER, MEDICAID | LOC: M SOG 16:12 | PROVIDERS: ATTEND Physician Assistant | DX: Z53.9 Procedure and treatment not carried out, unspecified reason (principal) ==

== ENCOUNTER 2024-02-26 13:22 | Emergency (ER) | payer OTHER, MEDICAID ==
[~2024-02-26] VITALS: Ht 188 cm; Wt 107.0 kg
[2024-02-26] MEDS ORDERED: OMEP40CA5 (13:36)
[2024-02-26] MEDS ORDERED: XARE20TA (13:36)
[2024-02-26 14:09] LABS: BASO % 0.6 % (0.0-1.0); EOS # 0.2 10^3/uL (0.0-0.5); EOS % 2.9 % (0.0-3.0); HEMATOCRIT 48.3 % (42.0-52.0); HEMOGLOBIN 16.4 g/dl (13.5-17.5); LYMPH # 1.7 10^3/uL (1.5-5.0); LYMPH % 25.1 % (24.0-44.0); MEAN CORPUSCULAR HEMOGLOBIN 29.5 pg (27.0-33.0); MONO # 0.8 10^3/uL (0.0-0.8); MONO % 11.7 % (2.0-8.0); NEUTROPHILS % 59.4 % (36.0-66.0); PLATELET COUNT, AUTOMATED 209 10^3/uL (150-450); RED BLOOD COUNT 5.55 10^6/uL (4.30-6.10); WHITE BLOOD COUNT 6.7 10^3/uL (4.0-10.0)
[2024-02-26] MEDS: ASPIRIN 81MG CHEW TABLET PO ONE (14:15)
[2024-02-26 14:33] LABS: CK-MB VALUE MASS 1.4 NG/ML (<3.6); LIPASE 31 U/L (12-53)
[2024-02-26 14:36] LABS: ALBUMIN 4.2 G/DL (3.2-5.2); ALKALINE PHOSPHATASE 113 U/L (46-116); ALT/SGPT 48 U/L (7.0-40); AST/SGOT 29 U/L (<34); BILIRUBIN,DIRECT 0.3 MG/DL (<0.4); BILIRUBIN,TOTAL 0.8 MG/DL (0.3-1.2); BLOOD UREA NITROGEN 17 MG/DL (9-23); CALCIUM LEVEL 9.9 MG/DL (8.5-10.1); CARBON DIOXIDE LEVEL 30 MMOL/L (20-31); CHLORIDE LEVEL 109 MMOL/L (98-107); CPK CREATINE PHOSPHOKINASE 121 U/L (46-171); CREATININE FOR GFR 0.92 MG/DL (0.70-1.30); GLOMERULAR FILTRATION RATE > 60.0 (>56); GLUCOSE, FASTING 97 MG/DL (60-100); MB/CK RELATIVE INDEX 1.15 (< OR =4); POTASSIUM SERUM 4.3 MMOL/L (3.5-5.1); SODIUM LEVEL 138 MMOL/L (136-145); THYROID STIMULATING HORMONE 3.992 uIU/ML (0.55-4.78); TOTAL PROTEIN 8.1 G/DL (5.7-8.2)
[2024-02-26 14:38] LABS: FREE T4 0.98 NG/DL (0.89-1.76)
[2024-02-26] MEDS ORDERED: ISOVUE-370 76% 100ML VIAL As Ordered ONE (14:55)
[2024-02-26 16:03] LABS: MB/CK RELATIVE INDEX 0.86 (< OR =4)
[2024-02-26 17:00] VITALS: BP 137/89; TEMP 97.9; O2SAT 97
== END 2024-02-26 17:15 | disposition home or self-care (01) ==
LOC: M ED 13:22
DX: R07.9 Chest pain, unspecified (principal); R91.8 Other nonspecific abnormal finding of lung field; I10 Essential (primary) hypertension; E78.5 Hyperlipidemia, unspecified; I25.2 Old myocardial infarction; J45.909 Unspecified asthma, uncomplicated; K21.9 Gastro-esophageal reflux disease without esophagitis; F33.9 Major depressive disorder, recurrent, unspecified; Z95.5 Presence of coronary angioplasty implant and graft; Z79.899 Other long term (current) drug therapy
CPT/HCPCS: 36415; 71045; 71275; 80047; 80048; 80076; 82550; 82553; 83690; 83880; 84439; 84443; 84484; 85025; 93005; 93041; 94760; 99285; Q9967

== ENCOUNTER → 2024-03-17 | Outpatient (REF) | payer OTHER ==
[~2024-03-17] MED LIST changes: +OMEP40CA5; +XARE20TA
[2024-03-17 12:04] LABS: BASO % 0.4 % (0.0-1.0); EOS # 0.3 10^3/uL (0.0-0.5); EOS % 6.5 % (0.0-3.0); HEMOGLOBIN 14.1 g/dl (13.5-17.5); LYMPH # 1.3 10^3/uL (1.5-5.0); LYMPH % 25.5 % (24.0-44.0); MEAN CORPUSCULAR HEMOGLOBIN 29.7 pg (27.0-33.0); MEAN CORPUSCULAR HGB CONC 33.6 g/dl (32.0-36.5); MEAN CORPUSCULAR VOLUME 88.6 fl (80.0-96.0); MONO # 0.6 10^3/uL (0.0-0.8); MONO % 11.9 % (2.0-8.0); NEUTROPHILS # 2.8 10^3/uL (1.5-8.5); NEUTROPHILS % 55.5 % (36.0-66.0); PLATELET COUNT, AUTOMATED 162 10^3/uL (150-450); RED BLOOD COUNT 4.74 10^6/uL (4.30-6.10); WHITE BLOOD COUNT 5.1 10^3/uL (4.0-10.0)
[2024-03-17 12:09] LABS: TOTAL IRON BINDING CAPACITY 341 UG/DL (250-425)
[2024-03-17 12:11] LABS: PSA SCREENING 0.64 NG/ML (< 4.00)
[2024-03-17 12:13] LABS: ALBUMIN 3.5 G/DL (3.2-5.2); ALKALINE PHOSPHATASE 110 U/L (46-116); ALT/SGPT 26 U/L (7.0-40); AST/SGOT 25 U/L (<34); BILIRUBIN,TOTAL 0.5 MG/DL (0.3-1.2); BLOOD UREA NITROGEN 20 MG/DL (9-23); CARBON DIOXIDE LEVEL 29 MMOL/L (20-31); CHLORIDE LEVEL 108 MMOL/L (98-107); CREATININE FOR GFR 1.01 MG/DL (0.70-1.30); GLOMERULAR FILTRATION RATE > 60.0 (>56); GLUCOSE, FASTING 106 MG/DL (60-100); IRON (FE) 49 UG/DL (65-175); PERCENT SATURATION 14.4 % (19.7-50.0); POTASSIUM SERUM 3.9 MMOL/L (3.5-5.1); SODIUM LEVEL 141 MMOL/L (136-145); TOTAL PROTEIN 7.1 G/DL (5.7-8.2)
[2024-03-17 12:14] LABS: FERRITIN 43.2 NG/ML (10.5-307.3); FREE T4 0.97 NG/DL (0.89-1.76); THYROID STIMULATING HORMONE 4.924 uIU/ML (0.55-4.78)
== END ==
LOC: M SFHCCLAY 08:42
PROVIDERS: ATTEND Physician Assistant Medical
DX: R74.8 Abnormal levels of other serum enzymes (principal); Z12.5 Encounter for screening for malignant neoplasm of prostate; Z86.19 Personal history of other infectious and parasitic diseases; K21.9 Gastro-esophageal reflux disease without esophagitis

== ENCOUNTER 2024-06-23 06:15 | Day surgery (SDC) | payer OTHER ==
[~2024-06-23] VITALS: Ht 188 cm; Wt 112.9 kg
[~2024-06-23 06:15] MED LIST changes: +ADVA1AER10 INH; +ADVA1AER8 INH; +AMIO200T49 PO; +ASPI-226 PO; -ATOR80TA59; +ATOR80TA59 PO; +CETI-24 PO; +PANT20TA6 PO; +TADA10TA PO; +VENTAER INH; -XARE20TA; +XARE20TA PO
[2024-06-23 08:17] VITALS: BP 131/79; TEMP 97.6; O2SAT 97
[2024-06-23] MEDS ORDERED: propofoL 200 MG/20 ML VIAL As Ordered ONE (10:11)
[2024-06-23] MEDS ORDERED: dexmedeTOMIDine (4MCG/ML)200MCG/50ML BTL (PRECEDEX) As Ordered ONE (10:11)
[2024-06-23] MEDS ORDERED: fentaNYL 100 MCG/2 ML INJECTION As Ordered ONE (10:11)
[2024-06-23] MEDS ORDERED: MIDAZOLAM INJ 2MG/2ML VIAL As Ordered ONE (10:11)
== END 2024-06-23 08:36 | disposition home or self-care (01) ==
LOC: M SDC 06:15
PROVIDERS: ATTEND Internal Medicine Cardiovascular Disease
DX: I48.91 Unspecified atrial fibrillation (principal); Z95.5 Presence of coronary angioplasty implant and graft; I25.2 Old myocardial infarction; R06.00 Dyspnea, unspecified; R53.83 Other fatigue; F10.11 Alcohol abuse, in remission; Z79.899 Other long term (current) drug therapy; Z87.891 Personal history of nicotine dependence
CPT/HCPCS: 92960; 93005; J2250; J3010

== ENCOUNTER → 2024-08-27 | Outpatient (CLI) | payer OTHER ==
[~2024-08-27] MED LIST changes: +E-Z-GAS II EFFERVESCENT PACKET (SODIUM BICARB./CITRIC ACID/SIMETHICONE) As Ordered ONE; +E-Z-HD 98% w/w 340GM SUSP BTL As Ordered ONE; +E-Z-PAQUE 96% w/w SUSP 176GM BTL As Ordered ONE
== END ==
LOC: M RAD 10:34
PROVIDERS: ATTEND Internal Medicine Gastroenterology
DX: R13.19 Other dysphagia (principal)

== ENCOUNTER 2024-09-30 11:30 | Day surgery (SDC) | payer OTHER ==
[~2024-09-30] VITALS: Ht 188 cm; Wt 112.2 kg
[~2024-09-30 11:30] MED LIST changes: -E-Z-GAS II EFFERVESCENT PACKET (SODIUM BICARB./CITRIC ACID/SIMETHICONE) As Ordered ONE; -E-Z-HD 98% w/w 340GM SUSP BTL As Ordered ONE; -E-Z-PAQUE 96% w/w SUSP 176GM BTL As Ordered ONE
[2024-09-30] MEDS ORDERED: fentaNYL 100 MCG/2 ML INJECTION As Ordered ONE (13:25)
[2024-09-30] MEDS ORDERED: GLYCOPYRROLATE INJ 0.2 MG/ML 2 ML VIAL As Ordered ONE (13:25)
[2024-09-30] MEDS ORDERED: LIDOCAINE 2% 100MG/5ML SDV (FOR ANES.) As Ordered ONE (13:25)
[2024-09-30] MEDS ORDERED: propofoL 200 MG/20 ML VIAL As Ordered ONE (13:25)
[2024-09-30 13:51] VITALS: TEMP 97.7
[2024-09-30 14:05] VITALS: BP 135/71; O2SAT 96
== END 2024-09-30 14:10 | disposition home or self-care (01) ==
LOC: M OPP 11:30
PROVIDERS: ATTEND Internal Medicine Gastroenterology
DX: F45.8 Other somatoform disorders (principal); K20.90 Esophagitis, unspecified without bleeding; K22.89 Other specified disease of esophagus; R05.3 Chronic cough; I48.0 Paroxysmal atrial fibrillation; Z95.5 Presence of coronary angioplasty implant and graft; Z86.73 Personal history of transient ischemic attack (TIA), and cerebral infarction without residual deficits; Z79.82 Long term (current) use of aspirin; Z79.01 Long term (current) use of anticoagulants; Z79.899 Other long term (current) drug therapy; J45.909 Unspecified asthma, uncomplicated
CPT/HCPCS: 43239; 88305; J1596; J3010

== ENCOUNTER 2025-02-28 14:53 | Emergency (ER) | payer OTHER ==
[~2025-02-28] VITALS: Ht 188 cm; Wt 110.8 kg
[~2025-02-28 14:53] MED LIST changes: -AMIO200T49 PO; +AMIO200T54 PO; +LISI40TA10; -LISI40TA4; +LORA-1164 PO; -LORA-622 PO
[2025-02-28 14:56] VITALS: BP 157/88; TEMP 98.1; O2SAT 96
== END 2025-02-28 15:50 | disposition left against medical advice (07) ==
LOC: M ED 14:53
DX: Z53.21 Procedure and treatment not carried out due to patient leaving prior to being seen by health care provider (principal)

== ENCOUNTER → 2025-04-11 | Outpatient (CLI) | payer OTHER | LOC: M RAD 06:50 | PROVIDERS: ATTEND Physician Assistant Medical | DX: R74.8 Abnormal levels of other serum enzymes (principal) ==

== ENCOUNTER → 2025-05-24 | Outpatient (CLI) | payer OTHER | LOC: M RAD 16:02 | PROVIDERS: ATTEND Physician Assistant | DX: Z12.2 Encounter for screening for malignant neoplasm of respiratory organs (principal); Z87.891 Personal history of nicotine dependence; J43.2 Centrilobular emphysema; R91.8 Other nonspecific abnormal finding of lung field; K80.20 Calculus of gallbladder without cholecystitis without obstruction ==